=== PATIENT | female | born 1980 | race Caucasian/White ===

== ENCOUNTER 2022-12-27 13:13 | Day surgery (SDC) | payer OTHER, SELFPAY ==
--- NOTE | 2022-12-27 13:18 | US_ITS ---
The [address] [address] Patient Name: ELZBIETA JASON MRN: [id number] date: 1980 Sex: F Assigned Patient Location: US Current Patient Location: Accession/Order Number: [id number] Exam Date: 12/27/2022 13:20 Report Date: 12/27/2022 21:01 At the request of: CARMEN KASPER Procedure: US soft tissue head and neck EXAM: US soft tissue head and neck HISTORY: Lymphadenopathy Of Left Cervical Region R59.0 COMPARISON: None. TECHNIQUE: Grayscale and color ultrasound FINDINGS: Multiple left-sided left neck lymph nodes are observed the largest measuring 1.3 x 0.5 x 1.3 cm. These are all normal in size and morphology with thickened cortex, hypervascular hyperechogenic eric, smooth smooth oval-shaped US/US soft tissue head and neck IMPRESSION: Multiple normal size normal morphology left-sided lymph nodes Electronically authenticated by: STEVAN NEWMAN Date: 12/27/2022 21:01
--- NOTE | 2022-12-27 13:19 | US_ITS ---
The [address] [address] Patient Name: ELZBIETA JASON MRN: [id number] date: 1980 Sex: F Assigned Patient Location: US Current Patient Location: US Accession/Order Number: [id number] Exam Date: 12/27/2022 13:20 Report Date: 12/27/2022 15:24 At the request of: CARMEN KASPER Procedure: US biopsy thyroid EXAMINATION: US biopsy thyroid HISTORY: Thyroid Nodule COMPARISON: No relevant comparison available. TECHNIQUE: After obtaining informed consent, an ultrasound-guided biopsy was performed in the usual sterile manner. FINDINGS: IMAGING: Ultrasound BIOPSY NEEDLE: 25 gauge, 2 inch SPECIMEN TYPE, #, LOCATION: 3 samples, right thyroid nodule MEDICATION: 2 cc 1% buffered lidocaine COMPLICATIONS: None. LABORATORY: genomic and pathology sent OTHER: Negative. US/US biopsy thyroid IMPRESSION: Uneventful ultrasound guided biopsy. The patient was instructed to obtain follow up care and biopsy results from the referring physician. Electronically authenticated by: STEVAN NEWMAN Date: 12/27/2022 15:24
--- NOTE | 2022-12-27 13:19 | US_ITS ---
[address] [address] Patient Name: ELZBIETA JASON MRN: [id number] date: 1980 Sex: F Assigned Patient Location: US Current Patient Location: US Accession/Order Number: [id number] Exam Date: 12/27/2022 13:20 Report Date: 12/27/2022 15:27 At the request of: CARMEN KASPER Procedure: US biopsy FNA add lesion EXAMINATION: US biopsy FNA add lesion HISTORY: Lymphadenopathy Of Left Cervical Region R59.0 COMPARISON: No relevant comparison available. TECHNIQUE: After obtaining informed consent, ultrasound-guided fine needle aspiration was performed in the usual sterile manner. FINDINGS: IMAGING: Ultrasound. BIOPSY NEEDLE: 25 gauge, 2 inch LOCATION: 1.5 cm left neck thyroid ultrasound SPECIMEN TYPE: Cellular tissue, 4 fine needle aspirates. LOCAL ANESTHETIC: 3 cc 1% Buffered Xylocaine. COMPLICATIONS: None. LABORATORY: Prepared slide smears and washings for cell block evaluation. OTHER: Negative. PATHOLOGY: Pending. US/US biopsy FNA add lesion IMPRESSION: 1. Uneventful ultrasound guided fine needle aspiration (FNA). 2. Pathology results are pending. Electronically authenticated by: STEVAN NEWMAN Date: 12/27/2022 15:27
[2022-12-27 13:40] VITALS: BP 104/78; PULSE 89; O2SAT 98
== END 2022-12-27 15:10 | disposition home or self-care (01) ==
PROVIDERS: Radiology Diagnostic Radiology; Visit Provider Otolaryngology
DX: R59.0 Localized enlarged lymph nodes (principal); E04.1 Nontoxic single thyroid nodule
CPT/HCPCS: 10005; 10006; 36415; 76536; 88173; 88184; 88185; 88187; 99999